=== PATIENT | male | born 1980 | race Caucasian/White ===

== ENCOUNTER 2017-07-11 09:32 | Emergency (ER) | payer OTHER ==
[~2017-07-11] VITALS: Ht 172.7 cm; Wt 56.8 kg
[2017-07-11 09:37] VITALS: TEMP 36.7; Ht 172.7 cm; Wt 56.8 kg
[2017-07-11] MEDS ORDERED: SODIUM CHLORIDE 0.9% 1000ML 1,000 ML IV STA (09:57)
[2017-07-11] MEDS ORDERED: ONDANSETRON INJ 2 MG/ML 2 ML VIAL IV STA (09:57)
[2017-07-11] MEDS ORDERED: MoRPHine SULFATE 4 MG/ML 1 ML CARP\\VIAL IV STA ×2 (09:57→12:12)
[2017-07-11] MEDS ORDERED: OPTIRAY 320 IV PRN (10:00)
[2017-07-11] MEDS ORDERED: CROHNS MED PO (10:08)
[2017-07-11] MEDS ORDERED: PRT/20 PO (10:08)
[2017-07-11 10:48] LABS: BASO % 0.6 %; BASO ABS # 0.05 K/uL (0-0.2); EOS % 1.6 %; EOS ABS # 0.14 K/uL (0-0.5); HEMATOCRIT 44.4 % (42-52); HEMOGLOBIN 15.5 g/dL (14.0-18.0); IG# 0.02 K/uL (0.00-0.02); LYMPH % 21.8 %; LYMPH ABS # 1.91 K/uL (1.2-3.4); MEAN CELL VOLUME 87.1 fL (80-100); MEAN CORPUSCULAR HEMOGLOBIN 30.4 pg (25-34); MEAN CORPUSCULAR HGB CONC 34.9 g/dl (32-36); MEAN PLATELET VOLUME 9.3 fL (7.4-10.4); MONO % 9.4 %; MONO ABS # 0.82 K/uL (0.11-0.59); NEUT % 66.4 %; NEUT ABS # 5.82 K/uL (1.4-6.5); PLATELET COUNT 259 K/uL (130-400); RED CELL DISTRIBUTION WIDTH CV 13.4 % (11.5-14.5); RED CELL DISTRIBUTION WIDTH SD 42.8 fL (36.4-46.3); WHITE BLOOD COUNT 8.76 K/uL (4.8-10.8)
[2017-07-11 11:01] LABS: ALBUMIN 3.7 gm/dl (3.4-5.0); ALT/SGPT 21 U/L (12-78); AST/SGOT 17 U/L (15-37); BLOOD UREA NITROGEN 11 mg/dl (7-18); CALCIUM 9.2 mg/dl (8.5-10.1); CARBON DIOXIDE 29 mmol/L (21-32); CREATININE 0.86 mg/dl (0.60-1.40); GLUCOSE 89 mg/dl (70-99); LIPASE 88 U/L (73-393); POTASSIUM 3.6 mmol/L (3.5-5.1); SODIUM 141 mmol/L (136-145)
[2017-07-11 11:04] LABS: ALKALINE PHOSPHATASE 107 U/L (45-117); TOTAL PROTEIN 7.1 gm/dl (6.4-8.2)
--- NOTE | 2017-07-11 12:52 | DIAGNOSTIC IMAGING REPORT ---
ABDOMEN AND PELVIS CT WITH IV AND ORAL CONTRAST CT DOSE: 246.32 mGy.cm HISTORY: Acute right-sided abdominal pain with history of Crohn's disease abd pain TECHNIQUE: Multiaxial CT images of the abdomen and pelvis were performed following the use of intravenous and oral contrast. A dose lowering technique was utilized adhering to the principles of ALARA. COMPARISON STUDY: None. FINDINGS: There is mild dependent subsegmental bibasilar atelectasis. There is no pneumatosis or pneumoperitoneum identified. Imaged inferior cardiac chambers are unremarkable. Liver, gallbladder, spleen, pancreas and adrenal glands are within normal limits. No intrahepatic biliary ductal dilation. 3 mm nonobstructing calculus of the interpolar left kidney. Kidneys are otherwise within normal limits. No ureteral calculi or obstructive uropathy. Ureters and urinary bladder are within normal limits. No aortic aneurysm or pathologic adenopathy. Air-filled distal esophagus. No bowel obstruction. Sigmoid colon diverticulosis without evidence of acute diverticulitis. Areas of apparent mild wall thickening throughout the descending colon likely secondary to partial distention without surrounding inflammatory changes. There is at least moderate wall thickening of the terminal ileum with mildly prominent nondilated loops of distal ileum measuring up to 2.7 cm transversely which appears somewhat patulous without additional wall thickening. There is air and contrast within the proximal appendiceal lumen, however the mid and distal appendiceal lumen is dilated measuring up to 8 mm. No surrounding periappendiceal inflammatory stranding. No ascites. Soft tissues are unremarkable. The bones appear intact. Areas of sclerosis within the left iliac wing are likely benign. Bone island of the right femoral head. Several Schmorl's nodes are seen throughout the spine. IMPRESSION: 1. The mid and distal portions of the appendix are mildly dilated measuring up to 8 mm without significant associated inflammatory stranding. Correlate clinically to exclude early developing acute appendicitis. 2. Moderate wall thickening of the terminal ileum causes luminal narrowing without associated surrounding inflammatory stranding compatible with patient's known clinical diagnosis of chronic Crohn's disease. No evidence of abnormal fistula, obstruction or definite acute Crohn's flare. 3. 3 mm nonobstructing calculus of the interpolar left kidney. Electronically signed by: Subhash Becker M.D. 07/11/2017 12:50 PM Dictated Date/Time: 07/11/2017 12:40 PM
[2017-07-11 14:07] VITALS: BP 108/81; PULSE 82; O2SAT 94
--- NOTE | 2017-07-11 14:33 | Surgery Consultation ---
Consultation Date of Consultation: Jul 11, 2017. Attending Physician: Reason for Consultation: RLQ abdominal pain, dilated appendix History of Present Illness 37 year-old male who presented to emergency department today with complaint of generalized abdominal pain intermittently for the past month that increased in nature last evening in the right lower abdomen. History of Crohn's disease since age 13. Follows with [facility] in [place]. Last Colonoscopy about 1 month ago. States he had severe abdominal pain immediately following the colonoscopy in which he states he just had xrays done. No surgical intervention was required. States since his colonoscopy he has had this off and on abdominal pain. States he was told his Crohn's is in remission but states they changed his Crohn's medication which he is unaware of the name. Last night noticed more pain in the right lower abdomen, sharp in nature. Some pain in the bilateral groin region. Denies fever, chills, sweats, nausea, vomiting, diarrhea, constipation, blood in stools, black/tarry stools. Last bowel movement was this morning, normal per patient. Denies of any difficulty urinating. Appetite has been good. Er workup showed no leukocytosis, afebrile, CMP completely within normal limits. CT scan of abdomen and pelvis with IV and oral contrast showed evidence of dilated mid and distal appendix at 8 mm however no associated inflammatory changes. Distal terminal ileum wall thickening with luminal narrowing consistent with history of Crohn's. No evidence of obstruction, fistula, or acute Crohn's flare. Past Medical/Surgical History Medical Problems: 1. Mishra's esophagus 2. Crohn's disease Past Surgical History: 1. Dental extraction 2. EGD/Colonoscopy Family History No pertinent family history Social History Smoking Status: Current Every Day Smoker Allergies Coded Allergies: No Known Allergies (Unverified , 07/11/17) Home Medications Scheduled Pantoprazole Sodium (Protonix), 20 MG PO BID [Crohns Med], 1 TAB PO QID Current Inpatient Medications Current Inpatient Medications Medications (Trade) Dose Ordered Sig/Los Route Start Time Stop Time Status Last Admin Dose Admin Ioversol (Optiray 320) 100 ml UD PRN IV 07/11/17 10:00 07/15/17 09:59 Review of Systems Constitutional: No fever, No chills, No sweats Respiratory: No shortness of breath Cardiovascular: No chest pain Abdomen: + pain, + nausea (intermitent, chronic, ongoing), No diarrhea, No constipation, No GI bleeding Genitourinary - Male: No hematuria, No dysuria, No urinary frequency, No urinary urgency Integumentary: No rash Physical Exam Date Time Temp Pulse Resp B/P (MAP) Pulse Ox O2 Delivery O2 Flow Rate FiO2 07/11/17 14:07 82 16 108/81 94 07/11/17 13:07 91 20 102/70 96 Room Air 07/11/17 11:35 91 18 103/71 97 Room Air 07/11/17 09:37 36.7 97 18 107/72 97 Room Air General Appearance: WD/WN, no apparent distress Head: normocephalic, atraumatic Eyes: sclerae normal ENT: hearing grossly normal Neck: trachea midline Respiratory/Chest: no respiratory distress, no accessory muscle use Abdomen/GI: soft, no organomegaly, no pulsatile mass, + tenderness (RLQ more than LLQ, no rigidity, guarding, rebound, or positive Mcburney's point) Extremities/Musculoskelatal: normal inspection Neurologic/Psych: alert, normal mood/affect, oriented x 3 Skin: normal color, warm/dry, no rash Laboratory Results Last 24 Hours Test 07/11/17 10:00 07/11/17 10:05 White Blood Count 8.76 K/uL Red Blood Count 5.10 M/uL Hemoglobin 15.5 g/dL Hematocrit 44.4 % Mean Corpuscular Volume 87.1 fL Mean Corpuscular Hemoglobin 30.4 pg Mean Corpuscular Hemoglobin Concent 34.9 g/dl Platelet Count 259 K/uL Mean Platelet Volume 9.3 fL Neutrophils (%) (Auto) 66.4 % Lymphocytes (%) (Auto) 21.8 % Monocytes (%) (Auto) 9.4 % Eosinophils (%) (Auto) 1.6 % Basophils (%) (Auto) 0.6 % Neutrophils # (Auto) 5.82 K/uL Lymphocytes # (Auto) 1.91 K/uL Monocytes # (Auto) 0.82 K/uL Eosinophils # (Auto) 0.14 K/uL Basophils # (Auto) 0.05 K/uL RDW Standard Deviation 42.8 fL RDW Coefficient of Variation 13.4 % Immature Granulocyte % (Auto) 0.2 % Immature Granulocyte # (Auto) 0.02 K/uL Sodium Level 141 mmol/L Potassium Level 3.6 mmol/L Chloride Level 106 mmol/L Carbon Dioxide Level 29 mmol/L Anion Gap 6.0 mmol/L Blood Urea Nitrogen 11 mg/dl Creatinine 0.86 mg/dl Est Creatinine Clear Calc Drug Dose 95.4 ml/min Estimated GFR () 129.3 Estimated GFR (Non- 111.6 BUN/Creatinine Ratio 12.4 Random Glucose 89 mg/dl Calcium Level 9.2 mg/dl Total Bilirubin 0.4 mg/dl Direct Bilirubin < 0.1 mg/dl Aspartate Amino Transf (AST/SGOT) 17 U/L Alanine Aminotransferase (ALT/SGPT) 21 U/L Alkaline Phosphatase 107 U/L Total Protein 7.1 gm/dl Albumin 3.7 gm/dl Lipase 88 U/L Urine Color DK YELLOW Urine Appearance CLEAR Urine pH 5.0 Urine Specific [place] 1.021 Urine Protein NEG Urine Glucose (UA) NEG Urine Ketones NEG Urine Occult Blood NEG Urine Nitrite NEG Urine Bilirubin NEG Urine Urobilinogen NEG Urine Leukocyte Esterase NEG Urine WBC (Auto) 1-5 /hpf Urine RBC (Auto) 0-4 /hpf Urine Hyaline Casts (Auto) 1-5 /lpf Urine Epithelial Cells (Auto) 0-5 /lpf Urine Bacteria (Auto) NEG ABDOMEN AND PELVIS CT WITH IV AND ORAL CONTRAST CT DOSE: 246.32 mGy.cm HISTORY: Acute right-sided abdominal pain with history of Crohn's disease abd pain TECHNIQUE: Multiaxial CT images of the abdomen and pelvis were performed following the use of intravenous and oral contrast. A dose lowering technique was utilized adhering to the principles of ALARA. COMPARISON STUDY: None. FINDINGS: There is mild dependent subsegmental bibasilar atelectasis. There is no pneumatosis or pneumoperitoneum identified. Imaged inferior cardiac chambers are unremarkable. Liver, gallbladder, spleen, pancreas and adrenal glands are within normal limits. No intrahepatic biliary ductal dilation. 3 mm nonobstructing calculus of the interpolar left kidney. Kidneys are otherwise within normal limits. No ureteral calculi or obstructive uropathy. Ureters and urinary bladder are within normal limits. No aortic aneurysm or pathologic adenopathy. Air-filled distal esophagus. No bowel obstruction. Sigmoid colon diverticulosis without evidence of acute diverticulitis. Areas of apparent mild wall thickening throughout the descending colon likely secondary to partial distention without surrounding inflammatory changes. There is at least moderate wall thickening of the terminal ileum with mildly prominent nondilated loops of distal ileum measuring up to 2.7 cm transversely which appears somewhat patulous without additional wall thickening. There is air and contrast within the proximal appendiceal lumen, however the mid and distal appendiceal lumen is dilated measuring up to 8 mm. No surrounding periappendiceal inflammatory stranding. No ascites. Soft tissues are unremarkable. The bones appear intact. Areas of sclerosis within the left iliac wing are likely benign. Bone island of the right femoral head. Several Schmorl's nodes are seen throughout the spine. IMPRESSION: 1. The mid and distal portions of the appendix are mildly dilated measuring up to 8 mm without significant associated inflammatory stranding. Correlate clinically to exclude early developing acute appendicitis. 2. Moderate wall thickening of the terminal ileum causes luminal narrowing without associated surrounding inflammatory stranding compatible with patient's known clinical diagnosis of chronic Crohn's disease. No evidence of abnormal fistula, obstruction or definite acute Crohn's flare. 3. 3 mm nonobstructing calculus of the interpolar left kidney. Assessment & Plan 37 year-old male with known history of Crohn's disease presented to emergency room with complaint of RLQ abdominal pain with intermittent generalized abdominal pain for the past month. No changes in bowel habits. NO blood in stools. No change in nausea (intermittent chronically), no vomiting. CT scan showed mid and distal appendix dilated at 8 mm however no associated inflammatory findings. Some terminal ileum wall thickening consistent with his known Crohn's however no signs of fistula, obstruction, or active Crohn's flare. No leukocytosis. Abdomen soft, tender in RLQ however no other findings consistent with acute appendicitis. Plan: Based on physical examination, labs, and CT scan findings do not believe this is acute appendicitis. Patient is tender in RLQ but most likely from his Crohn' s disease. Discussed with patient options of admitting him to hospital for observation vs discharge home. Patient would rather not stay in hospital. Advised patient to report back to emergency room for increasing abdominal pain, fever, chills, nausea, vomiting. Patient understood. 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 Discussed with Dr. Lloyd who agrees with above Discussed recs with Dr. Calderon
--- NOTE | 2017-07-11 15:13 | EMERGENCY ROOM VISIT NOTE ---
History Report prepared by Marco: Fransisco Chandra Under the Supervision of: Dr. Hunter Calderon D.O. First contact with patient: 09:46 Chief Complaint: ABDOMINAL PAIN Stated Complaint: SHARP PAIN IN RIGHT SIDE OF STOMACH Nursing Triage Summary: Right sided abdominal pain for a few months. Saw PCP for this, has hx of chrons and barrets esophagus. History of Present Illness The patient is a 37 year old male who presents to the Emergency Room with complaints of waxing and waning abdominal pain that started 4 to 5 months ago. He states that the worst pain has been on the right side. The patient says that the pain has never completely went away over the past 4 to 5 months. He adds that he has been having some days when he is nauseous with episodes of vomiting. He states that he last vomited this morning. The patient says that his last bowel movement was this morning, and it was normal for him, although he never has a normal bowel movement due to his Crohn's. The patient denies any pain or burning with urination, or hematochezia. He notes that he was recently switched to a medication for his Crohn's. The patient says that he still has all his major abdominal organs. He says that he had a colonoscopy a few months ago. Source of History: patient Onset: 4 to 5 months ago Position: abdomen Timing: waxes/wanes Associated Symptoms: + nausea, + vomiting, No hematochezia, No urinary symptoms Note: Denies bowel movement changes. Review of Systems See HPI for pertinent positives & negatives. A total of 10 systems reviewed and were otherwise negative. Past Medical & Surgical Medical Problems: (1) Mishra esophagus (2) Crohns disease Family History No pertinent family history Social History Smoking Status: Current Every Day Smoker Marital Status: Housing Status: lives with family Current/Historical Medications Scheduled Pantoprazole Sodium (Protonix), 20 MG PO BID [Crohns Med], 1 TAB PO QID Allergies Coded Allergies: No Known Allergies (Unverified , 07/11/17) Physical Exam Vital Signs Date Time Temp Pulse Resp B/P (MAP) Pulse Ox O2 Delivery O2 Flow Rate FiO2 07/11/17 14:07 82 16 108/81 94 07/11/17 13:07 91 20 102/70 96 Room Air 07/11/17 11:35 91 18 103/71 97 Room Air 07/11/17 09:37 36.7 97 18 107/72 97 Room Air Physical Exam GENERAL: Sitting up in bed, alert, well appearing, well nourished, no distress, non-toxic EYE EXAM: normal conjunctiva. PERRL and EOM's intact. OROPHARYNX: no exudate, no erythema, lips, buccal mucosa, and tongue normal and mucous membranes are moist NECK: supple, no nuchal rigidity, no adenopathy, non-tender LUNGS: Clear to auscultation. Normal chest wall mechanics HEART: no murmurs, S1 normal and S2 normal ABDOMEN: abdomen soft, faint tenderness right lower abdomen, normo-active bowel sounds, no masses, no rebound or guarding. BACK: Back is symmetrical on inspection and there is no deformity, no midline tenderness, no CVA tenderness. SKIN: no rashes and no bruising UPPER EXTREMITIES: upper extremities are grossly normal. LOWER EXTREMITIES: No pitting edema. NEURO EXAM: Normal sensorium, cranial nerves II-XII grossly intact, normal speech, no gross weakness of arms, no gross weakness of legs. Medical Decision & Procedures ER Provider Diagnostic Interpretation: CT results as stated below per my review and the radiologist's interpretation: ABDOMEN AND PELVIS CT WITH IV AND ORAL CONTRAST CT DOSE: 246.32 mGy.cm HISTORY: Acute right-sided abdominal pain with history of Crohn's disease abd pain TECHNIQUE: Multiaxial CT images of the abdomen and pelvis were performed following the use of intravenous and oral contrast. A dose lowering technique was utilized adhering to the principles of ALARA. COMPARISON STUDY: None. FINDINGS: There is mild dependent subsegmental bibasilar atelectasis. There is no pneumatosis or pneumoperitoneum identified. Imaged inferior cardiac chambers are unremarkable. Liver, gallbladder, spleen, pancreas and adrenal glands are within normal limits. No intrahepatic biliary ductal dilation. 3 mm nonobstructing calculus of the interpolar left kidney. Kidneys are otherwise within normal limits. No ureteral calculi or obstructive uropathy. Ureters and urinary bladder are within normal limits. No aortic aneurysm or pathologic adenopathy. Air-filled distal esophagus. No bowel obstruction. Sigmoid colon diverticulosis without evidence of acute diverticulitis. Areas of apparent mild wall thickening throughout the descending colon likely secondary to partial distention without surrounding inflammatory changes. There is at least moderate wall thickening of the terminal ileum with mildly prominent nondilated loops of distal ileum measuring up to 2.7 cm transversely which appears somewhat patulous without additional wall thickening. There is air and contrast within the proximal appendiceal lumen, however the mid and distal appendiceal lumen is dilated measuring up to 8 mm. No surrounding periappendiceal inflammatory stranding. No ascites. Soft tissues are unremarkable. The bones appear intact. Areas of sclerosis within the left iliac wing are likely benign. Bone island of the right femoral head. Several Schmorl's nodes are seen throughout the spine. IMPRESSION: 1. The mid and distal portions of the appendix are mildly dilated measuring up to 8 mm without significant associated inflammatory stranding. Correlate clinically to exclude early developing acute appendicitis. 2. Moderate wall thickening of the terminal ileum causes luminal narrowing without associated surrounding inflammatory stranding compatible with patient's known clinical diagnosis of chronic Crohn's disease. No evidence of abnormal fistula, obstruction or definite acute Crohn's flare. 3. 3 mm nonobstructing calculus of the interpolar left kidney. Electronically signed by: Subhash Becker M.D. 07/11/2017 12:50 PM Dictated Date/Time: 07/11/2017 12:40 PM Laboratory Results 07/11/17 10:00 Red Blood Count 5.10, Mean Corpuscular Volume 87.1, Mean Corpuscular Hemoglobin 30.4, Mean Corpuscular Hemoglobin Concent 34.9, Mean Platelet Volume 9.3, Neutrophils (%) (Auto) 66.4, Lymphocytes (%) (Auto) 21.8, Monocytes (%) (Auto) 9.4, Eosinophils (%) (Auto) 1.6, Basophils (%) (Auto) 0.6, Neutrophils # (Auto) 5.82, Lymphocytes # (Auto) 1.91, Monocytes # (Auto) 0.82, Eosinophils # (Auto) 0.14, Basophils # (Auto) 0.05 07/11/17 10:00 Test 07/11/17 10:00 07/11/17 10:05 White Blood Count 8.76 K/uL (4.8-10.8) Red Blood Count 5.10 M/uL (4.7-6.1) Hemoglobin 15.5 g/dL (14.0-18.0) Hematocrit 44.4 % (42-52) Mean Corpuscular Volume 87.1 fL (80-100) Mean Corpuscular Hemoglobin 30.4 pg (25-34) Mean Corpuscular Hemoglobin Concent 34.9 g/dl (32-36) Platelet Count 259 K/uL (130-400) Mean Platelet Volume 9.3 fL (7.4-10.4) Neutrophils (%) (Auto) 66.4 % Lymphocytes (%) (Auto) 21.8 % Monocytes (%) (Auto) 9.4 % Eosinophils (%) (Auto) 1.6 % Basophils (%) (Auto) 0.6 % Neutrophils # (Auto) 5.82 K/uL (1.4-6.5) Lymphocytes # (Auto) 1.91 K/uL (1.2-3.4) Monocytes # (Auto) 0.82 K/uL (0.11-0.59) Eosinophils # (Auto) 0.14 K/uL (0-0.5) Basophils # (Auto) 0.05 K/uL (0-0.2) RDW Standard Deviation 42.8 fL (36.4-46.3) RDW Coefficient of Variation 13.4 % (11.5-14.5) Immature Granulocyte % (Auto) 0.2 % Immature Granulocyte # (Auto) 0.02 K/uL (0.00-0.02) Anion Gap 6.0 mmol/L (3-11) Est Creatinine Clear Calc Drug Dose 95.4 ml/min Estimated GFR () 129.3 Estimated GFR (Non- 111.6 BUN/Creatinine Ratio 12.4 (10-20) Calcium Level 9.2 mg/dl (8.5-10.1) Total Bilirubin 0.4 mg/dl (0.2-1) Direct Bilirubin < 0.1 mg/dl (0-0.2) Aspartate Amino Transf (AST/SGOT) 17 U/L (15-37) Alanine Aminotransferase (ALT/SGPT) 21 U/L (12-78) Alkaline Phosphatase 107 U/L (45-117) Total Protein 7.1 gm/dl (6.4-8.2) Albumin 3.7 gm/dl (3.4-5.0) Lipase 88 U/L (73-393) Urine Color DK YELLOW Urine Appearance CLEAR (CLEAR) Urine pH 5.0 (4.5-7.5) Urine Specific [place] 1.021 (1.000-1.030) Urine Protein NEG (NEG) Urine Glucose (UA) NEG (NEG) Urine Ketones NEG (NEG) Urine Occult Blood NEG (NEG) Urine Nitrite NEG (NEG) Urine Bilirubin NEG (NEG) Urine Urobilinogen NEG (NEG) Urine Leukocyte Esterase NEG (NEG) Urine WBC (Auto) 1-5 /hpf (0-5) Urine RBC (Auto) 0-4 /hpf (0-4) Urine Hyaline Casts (Auto) 1-5 /lpf (0-5) Urine Epithelial Cells (Auto) 0-5 /lpf (0-5) Urine Bacteria (Auto) NEG (NEG) Laboratory results per my review. Medications Administered Medications (Trade) Dose Ordered Sig/Los Route Start Time Stop Time Status Last Admin Dose Admin Sodium Chloride 1,000 ml @ 999 mls/hr Q1H1M STAT IV 07/11/17 09:57 07/11/17 10:57 DC 07/11/17 10:05 999 MLS/HR Ondansetron HCl (Zofran Inj) 4 mg NOW STAT IV 07/11/17 09:57 07/11/17 09:58 DC 07/11/17 10:05 4 MG Morphine Sulfate (MoRPHine SULFATE INJ) 4 mg NOW STAT IV 07/11/17 09:57 07/11/17 09:58 DC 07/11/17 10:05 4 MG Morphine Sulfate (MoRPHine SULFATE INJ) 4 mg NOW STAT IV 07/11/17 12:12 07/11/17 12:13 DC 07/11/17 12:41 4 MG ED Course ED COURSE: Vital signs were reviewed and showed normal vitals. The patients medical record was reviewed The above diagnostic studies were performed and reviewed. ED treatments and interventions as stated above. 0952: The patient was evaluated in room B2. A complete history and physical examination was performed. 0957: Morphine Sulfate Inj 4 mg IV, Zofran Inj 4 mg IV, NSS 1000 ml @ 999 mls/ hr IV. 1211: I reevaluated and updated the patient. 1305: I discussed the patient with Genny Ames PA-C General surgery [facility] - general surgery will come see the patient. 1353: Upon reevaluation, the patient is resting. General surgery saw the patient , and offered him observation, but the patient wants to go home. General surgery does not believe it is his appendix. I discussed my findings with the patient and he understands and agrees with the treatment plan. Based on the patients age, coexisting illnesses, exam and lab findings the decision to treat as an outpatient was made. The patient remained stable while under my care. The patient appeared well at the time of discharge. Medical Decision Differential diagnoses includes but is not limited to gastritis, peptic ulcer disease, GERD, gallbladder disease, pancreatitis, small bowel obstruction, acute coronary syndrome, pericarditis, ischemic bowel, irritable bowel disease, irritable bowel syndrome, appendicitis, diverticulitis, malignancy, hernia, urinary tract infection, torsion, perforation, trauma, infectious. Patient is a 37-year-old male that presents to ER with right-sided abdominal pain which has been waxing and waning for the past several months. Recently worsened over the past 24 hours. Associated with nausea vomiting. Does have a history of Crohn's. He notes he always has pain in the right lower quadrant but slightly worse. On exam he has no true peritonitis. CBC along with BMP, LFTs and bilirubin lipase is unremarkable. UA was negative. CT of abdomen pelvis shows enlarged appendix at 8 mm from the mid to distal portion but no surrounding inflammation. Based on this I updated the patient discussed case with general surgery. They evaluated him at bedside. Offered observation overnight but he declined. Patient will follow up as an outpatient. Keep him strict instructions to return as well as surgery did. Discussed with Pt concerning signs and symptoms to watch out for. Pt was instructed to follow up with their PCP and discussed with the patient their option to return to the ED at anytime for persistent or worsening symptoms. The appropriate anticipatory guidance and out-patient management, including indications for return to the emergency department, were explained at length to the patient and understood. Medication Reconcilliation Current Medication List: was personally reviewed by me Blood Pressure Screening Patient's blood pressure: Normal blood pressure Consults Time Called: 1300 Consulting Physician: Genny Ames PA-C General surgery [facility] Returned Call: 1305 I discussed the patient with Genny Ames PA-C General surgery [facility] - general surgery will come see the patient. Impression Primary Impression: Abdominal pain Scribe Attestation The scribe's documentation has been prepared under my direction and personally reviewed by me in its entirety. I confirm that the note above accurately reflects all work, treatment, procedures, and medical decision making performed by me. Departure Information Dispostion Home / Self-Care Referrals No Doctor, Assigned (PCP) Ian Lowe M.D. Patient Instructions Abdominal Pain - [facility], My [facility] Additional Instructions Please follow up with your primary care doctor with in the next 24 hours. Any worsening of your symptoms, please return to the ED immediately. This includes any fevers greater than 100.4, worsening pain, chest pain, shortness breath, persistent nausea, vomiting, unable to eat or drink, or any other concerning signs or symptoms from your standpoint. The CT of your abdomen showed a slightly dilated appendix at 8 mm. There is no surrounding inflammation. You did see general surgery. If any of your symptoms worsen in the right lower quadrant or he started having nausea, vomiting or fevers please return immediately to the ER as this could still be your appendix. Problem Qualifiers Primary Impression: Abdominal pain Abdominal location: unspecified location Qualified Codes: R10.9 - Unspecified abdominal pain
== END 2017-07-11 14:08 | disposition home or self-care (01) ==
LOC: C.EDB 09:34
DX: R10.31 Right lower quadrant pain (principal); K38.8 Other specified diseases of appendix; R11.2 Nausea with vomiting, unspecified; K50.90 Crohn's disease, unspecified, without complications; K22.70 Barrett's esophagus without dysplasia; F17.200 Nicotine dependence, unspecified, uncomplicated